=== PATIENT | female | born 1955 | race Caucasian/White ===

== ENCOUNTER 2019-07-27 14:42 | Emergency (ER) | payer MEDICARE, BC ==
--- NOTE | 2019-07-27 15:37 | EDM.PDOC ---
ED HPI GENERAL MEDICAL PROBLEM - General Chief Complaint: Chest Pain Time Seen by Provider: 07/27/19 14:45 Source of Information: Reports: Patient, Family () History Limitations: Reports: No Limitations - History of Present Illness INITIAL COMMENTS - FREE TEXT/NARRATIVE: Patient has been concerned about constipation. 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 She did take milk of magnesia earlier. She has not had a stress test. She has had colonoscopies before but her colon has always been quite torturous and that has been difficult for her. The sternal discomfort is a 5-6 out of 10 and it will radiate to her throat and she'll have tingling into her left arm. She also had hypertension. I did treat her hypertension. She did talk to her daughter who is in nursing school and she recommended coming in. EKG was unremarkable. Troponin was normal. Chest x-ray was normal. She asked if I could see any obstipation on her chest x-ray present told her that I could not. I don't think that another x-ray would be beneficial. She talked about going home but then she also talked about further symptoms as far as back pain and GERD. She did get some relief with a GI cocktail and I did give her 1 dose of Protonix and she can talk to her primary in regards to additional refills on her Protonix whether that would be daily or every other day. After a dose of hydralazine her blood pressure did come down to 131. Systolic. She felt cold for going home at this time and I welcomed her to return if she has any further chest pain. I also told her that I would recommend a stress test possibly a Lexiscan because of her history of knee issues. Also a CT scan for a calcium score may be beneficial to deciphering her overall cardiac risk and possibly an EGD to look for H. pylori and ulcers. I told her that this would be a much easier test for her then the prior colonoscopies. Her discomfort had fastly improved to 1-2 out of 10. The patient is concerned about hiatal hernias as it does seem to run in her family. 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: Reports: Other (see below) (Stool softeners) Middle Chest Pain Score (Numeric/FACES): 5 - Related Data Allergies Allergy/AdvReac Type Severity Reaction Status Date / Time morphine Allergy Hives Verified 07/27/19 15:22 contrast dye Allergy Hives Uncoded 07/27/19 15:22 Home Meds: Home Meds Escitalopram [Lexapro] 20 mg PO DAILY 07/27/19 [History] Levothyroxine [Synthroid] 50 mcg PO DAILY 07/27/19 [History] Past Medical History Psychiatric History: Reports: Anxiety Endocrine/Metabolic History: Reports: Hypothyroidism Social & Family History - Tobacco Use Smoking Status *Q: Never Smoker ED ROS GENERAL - Review of Systems Review Of Systems: Comprehensive ROS is negative, except as noted in HPI. ED EXAM, GENERAL - Physical Exam Exam: See Below Exam Limited By: No Limitations General Appearance: Alert Respiratory/Chest: No Respiratory Distress, Lungs Clear, Normal Breath Sounds, No Accessory Muscle Use, Chest Non-Tender Cardiovascular: Normal Peripheral Pulses, Regular Rate, Rhythm, No Edema, No Gallop, No JVD, No Murmur, No Rub GI/Abdominal: Normal Bowel Sounds, Soft, Non-Tender, No Organomegaly, No Distention, No Abnormal Bruit, No Mass Course - Vital Signs Last Recorded V/S: Last Vital Signs Temp 36.7 C 07/27/19 14:42 Pulse 65 07/27/19 15:54 Resp 15 07/27/19 15:54 BP 131/71 07/27/19 16:32 Pulse Ox 96 07/27/19 15:54 - Orders/Labs/Meds Orders: Active Orders 24 hr Category Date Time Status EKG 12 Lead [EKG Documentation Completion] [RC] STAT Care 07/27/19 14:57 Active CULTURE URINE [RM] Stat Lab 07/27/19 14:57 Ordered Labs: Laboratory Tests 07/27/19 07/27/19 07/27/19 Range/Units 15:10 15:10 15:10 WBC 5.7 (4.0-10.0) x10^3/uL RBC 4.22 (4.00-5.50) x10^6/uL Hgb 13.2 (12.0-16.0) g/dL Hct 39.6 (33.0-47.0) % MCV 93.8 H (78.0-93.0) fL MCH 31.3 (26.0-32.0) pg MCHC 33.3 (32.0-36.0) g/dL RDW Coeff of Eugenio 12.7 (10.0-15.0) % Plt Count 242 (130-400) x10^3/uL Neut % (Auto) 42.1 L (50.0-80.0) % Lymph % (Auto) 49.1 (25.0-50.0) % [place] % (Auto) 7.2 (2.0-11.0) % Eos % (Auto) 1.2 (0.0-4.0) % Baso % (Auto) 0.4 (0.2-1.2) % Sodium 142 (136-145) mmol/L Potassium 4.1 (3.5-5.1) mmol/L Chloride 101 (98-107) mmol/L Carbon Dioxide 31 (21-32) mmol/L Anion Gap 14.1 (10-20) mmol/L BUN 24 H (7-18) mg/dL Creatinine 0.9 (0.55-1.02) mg/dL Est Cr Clr Drug Dosing TNP Estimated GFR (MDRD) > 60 Glucose 89 (74-106) mg/dL Lactic Acid 1.0 (0.4-2.0) mmol/L Calcium 9.9 (8.5-10.1) mg/dL Corrected Calcium 9.82 (8.5-10.1) mg/dL Magnesium 2.9 H (1.8-2.4) mg/dL Total Bilirubin 0.6 (0.2-1.0) mg/dL AST 26 (15-37) U/L ALT 20 (14-59) U/L Alkaline Phosphatase 73 (46-116) U/L Troponin I < 0.017 (<=0.056) ng/mL C-Reactive Protein 0.2 (<=0.9) mg/dL NT-Pro-B Natriuret Pep 80 (<=125) pg/mL Total Protein 8.4 H (6.4-8.2) g/dL Albumin 4.1 (3.4-5.0) g/dL Globulin 4.3 Albumin/Globulin Ratio 0.95 Meds: Medications Discontinued Medications Generic Name Dose Route Start Last Admin Trade Name Larry PRN Reason Stop Dose Admin Al Hydroxide/Mg Hydroxide 30 ml 07/27/19 15:39 07/27/19 15:44 Gi Cocktail PO 07/27/19 15:40 30 ml ONETIME ONE Administration Aspirin 324 mg 07/27/19 16:17 07/27/19 14:48 Aspirin PO 07/27/19 16:18 324 mg ONETIME ONE Administration Hydralazine HCl 10 mg 07/27/19 16:05 07/27/19 16:10 Apresoline IVPUSH 07/27/19 16:06 10 mg ONETIME ONE Administration Pantoprazole Sodium 40 mg 07/27/19 16:03 07/27/19 16:16 Protonix PO 07/27/19 16:04 40 mg ONETIME ONE Administration Departure - Departure Time of Disposition: 15:53 Disposition: Home, Self-Care 01 Condition: Good Clinical Impression: Atypical chest pain Referrals: Jenn Mosley PA-C [Primary Care Provider] - Forms: ED Department Discharge Additional Instructions: EKG and chest x-ray were normal. Lab work was normal. I would recommend a stress test outpatient perhaps a chemical or Lexiscan secondary to issues with your knees in the past. Otherwise a calcium CAT scan would also be beneficial to decide your potential risk for future coronary disease. Protonix was given to help with your reflux. Continue taking stool softners. I will discuss this further with your primary. Perhaps an EGD to assess for a gastric ulcer is needed and a biopsy for H. Pylori. Also to discuss possible blood pressure issues. - My Orders Last 24 Hours: My Active Orders 07/27/19 14:57 EKG 12 Lead [EKG Documentation Completion] [RC] STAT CULTURE URINE [RM] Stat - Assessment/Plan Last 24 Hours: My Active Orders 07/27/19 14:57 EKG 12 Lead [EKG Documentation Completion] [RC] STAT CULTURE URINE [RM] Stat
--- NOTE | 2019-07-27 15:37 | CR ---
[id number] RAD/RAD Chest PA or AP 1V EXAM: SINGLE VIEW CHEST. INDICATION: SHORTNESS OF BREATH COMPARISON: NO PREVIOUS SIMILAR EXAM IS AVAILABLE FINDINGS: The lungs are clear There is no pneumothorax The cardiomediastinal contour is normal IMPRESSION: NO ACUTE PROCESS Kwaku Ken MD 07/27/19 0233 Thank you for allowing us to participate in the care of your patient.
[2019-07-27] MEDS ORDERED: GI Cocktail Oral Solution 30 ML PO ONE (15:39)
[2019-07-27 15:45] LABS: CHLORIDE,CL 101 mmol/L (98-107); SODIUM,NA 142 mmol/L (136-145)
[2019-07-27 15:46] LABS: ANION GAP 14.1 mmol/L (10-20)
[2019-07-27 15:55] VITALS: PULSE 65
[2019-07-27] MEDS ORDERED: Pantoprazole 40 MG Tab.CR PO ONE (16:03)
[2019-07-27] MEDS ORDERED: hydrALAZINE 20 MG/ML SDV IVPUSH ONE (16:05)
[2019-07-27] MEDS ORDERED: Aspirin 81 MG Tab.Chew PO ONE (16:17)
[2019-07-27 16:32] VITALS: BP 131/71
== END 2019-07-27 16:44 | disposition home or self-care (01) ==
LOC: VM.ED 14:42
DX: R07.89 Other chest pain (principal); I10 Essential (primary) hypertension; E03.9 Hypothyroidism, unspecified; F41.9 Anxiety disorder, unspecified; Z88.5 Allergy status to narcotic agent; Z91.041 Radiographic dye allergy status; Z79.899 Other long term (current) drug therapy
CPT/HCPCS: 71045; 80053; 83605; 83735; 83880; 84484; 85025; 86140; 93005; 96374; 99284-GF; 99285-25; A9270-GY; J0360

== ENCOUNTER 2019-08-28 06:37 | Day surgery (SDC) | payer MEDICARE, BC ==
[2019-08-28] MEDS ORDERED: Lactated Ringers 1,000 ML IV SCH (07:00)
[2019-08-28] MEDS ORDERED: Sodium Chloride 0.9% 10 ML Syringe FLUSH PRN (07:00)
[2019-08-28] MEDS ORDERED: Propofol 200 MG/20 ML SDV ONE (08:03)
[2019-08-28] MEDS ORDERED: fentaNYL 100 MCG/2 ML SDV ONE (08:03)
[2019-08-28 09:44] VITALS: BP 130/73; PULSE 61
--- NOTE | 2019-08-28 14:07 | OR ---
SURGERY DATE: 08/28/2019. REFERRING PROVIDER: Odin Soriano MD. PRE-OPERATIVE DIAGNOSES: 1. Dysphagia. 2. Globus sensation. POST-OPERATIVE DIAGNOSES: 1. Mild antritis. Cold biopsy x2 bites taken for path and Helicobacter pylori. 2. 8 to 10 mm area of inflammation or superficial ulceration to the stomach body. Cold biopsy x2 bites taken. 3. 3 cm sliding-type hiatal hernia without any significant inflammation nor any stricture or rings. 4. Normal-appearing esophageal mucosa. Mid esophageal biopsy x2 bites taken to check for any eosinophilic esophagitis. PROCEDURE: EGD with cold biopsy x3 sites. SURGEON: Cheng Taylor M.D. ANESTHESIA: Monitored anesthesia care. Yanira is a 64-year-old female who was brought to the endoscope suite after discussion of risks and benefits (including but not limited to reaction to medication, bleeding, infection, aspiration, perforation). Informed consent was obtained for monitored anesthesia care and esophagogastroduodenoscopy along with possible biopsy and/or dilatation. Pre-procedure exam including oral cavity was unremarkable. IV, oxygen, and monitors were placed. Patient was placed in the left lateral position and sedation was administered. A bite block was placed gently and scope lightly lubricated and passed through the bite block and over the tongue. Hypopharynx and vocal cords were visualized and unremarkable. Scope was passed through the cricopharynx and into the esophagus. The scope was then passed through the distal esophagus and the GE junction was visualized and photographed. The GE junction was remarkable for about a 3 cm sliding-type hiatal hernia. No strictures or rings present. No significant inflammation noted. Vocal cords were visualized and unremarkable. The scope was advanced into the stomach and gastric mcgee was suctioned. Pylorus was identified and intubated and then the scope was advanced to the third portion of the duodenum. The second and third portions of the duodenum were unremarkable. The duodenal bulb was visualized and unremarkable. The scope was brought back into the stomach. The pylorus and the antrum were remarkable for some mild enteritis. Cold biopsy x2 bites taken for path and H pylori. Scope was then retroflexed to visualize the angularis, fundus, body, and cardia. The stomach body was remarkable for about 8 to 10 mm area of inflammation/superficial ulceration. Cold biopsy x2 bites taken from this site. Stomach was desufflated of air and then the scope was slowly withdrawn. Esophagus was closely visualized during withdrawal all the way to the posterior pharynx. Midesophageal biopsy x2 bites was taken to check for any eosinophilic esophagitis given her history of chronic dysphagia. The patient tolerated the procedure well and went to recovery in stable condition. The patient was monitored until at baseline status. Findings and discharge instructions were reviewed and the patient was discharged in good condition. COMPLICATIONS: None. TOTAL TIME: 10 minutes. ESTIMATED BLOOD LOSS: 1 to 2 mL. RECOMMENDATIONS/FOLLOW-UP: We will await results of path report and send letter with results. I would like her to continue on omeprazole 1 to 2 times daily to control symptoms. I did recommend taking it twice a day for the first month and then get back down to once daily thereafter if symptoms under better control. If symptoms are ongoing, could consider swallow study. I would like to kindly thank Odin Soriano for this referral. DMB: 08/28/2019 10:42:05 MODL: 08/28/2019 13:58:24 /[id number]
== END 2019-08-28 10:40 | disposition home or self-care (01) ==
LOC: VM.SDS 06:37
PROVIDERS: ATTEND Family Medicine
DX: K44.9 Diaphragmatic hernia without obstruction or gangrene (principal); K31.89 Other diseases of stomach and duodenum; I10 Essential (primary) hypertension; E03.9 Hypothyroidism, unspecified; F41.9 Anxiety disorder, unspecified; M15.9 Polyosteoarthritis, unspecified; Z79.899 Other long term (current) drug therapy; Z88.5 Allergy status to narcotic agent; Z91.041 Radiographic dye allergy status
CPT/HCPCS: 00731; 43239; J2704; J3010; J7120

== ENCOUNTER 2021-09-08 12:03 | Day surgery (SDC) | payer MEDICARE, BC ==
[~2021-09-08 12:03] MED LIST: Lactated Ringers 1,000 ML IV SCH; Sodium Chloride 0.9% 10 ML Syringe FLUSH PRN
[2021-09-08] MEDS ORDERED: Propofol 200 MG/20 ML SDV ONE ×2 (12:31→13:57)
[2021-09-08] MEDS ORDERED: fentaNYL 100 MCG/2 ML SDV ONE (12:31)
[2021-09-08 14:57] VITALS: BP 139/81; PULSE 76
== END 2021-09-08 15:15 | disposition home or self-care (01) ==
LOC: VM.SDS 12:03
PROVIDERS: ATTEND Family Medicine
DX: Z12.11 Encounter for screening for malignant neoplasm of colon (principal); K62.1 Rectal polyp; K57.30 Diverticulosis of large intestine without perforation or abscess without bleeding; E03.9 Hypothyroidism, unspecified; F41.9 Anxiety disorder, unspecified; K21.9 Gastro-esophageal reflux disease without esophagitis; G47.00 Insomnia, unspecified; Z98.890 Other specified postprocedural states; Z88.5 Allergy status to narcotic agent; Z88.8 Allergy status to other drugs, medicaments and biological substances; Z79.899 Other long term (current) drug therapy
CPT/HCPCS: 00812; 88305; J2704; J3010; J7120